=== PATIENT | male | born 1990 | race Caucasian/White ===

== ENCOUNTER 2024-12-03 21:50 | Emergency (ER) | payer OTHER, SELFPAY ==
[2024-12-03 22:15] VITALS: BP 129/72; PULSE 83; RESP 18; TEMP 36.8; O2SAT 97; BMI 23.6
--- NOTE | 2024-12-03 22:18 | DI.RAD.S_ITS ---
PROCEDURE: XR CHEST 2V INDICATIONS: cough, pt concern for pneumonia TECHNIQUE: 2 views of the chest were acquired. COMPARISON: None. FINDINGS: Surgical changes and devices: None. Lungs and pleura: Patchy alveolar opacity in the left mid to lower lung zone. Right lung is clear. No pleural effusion. Mediastinum: Mediastinal contours are normal. Heart size is normal. Bones and chest wall: No suspicious bony abnormalities. Soft tissues appear unremarkable. IMPRESSION: Acute alveolar opacity in the left lower lobe without pleural effusion. Dictated by: Aislinn Cullen M.D. on 12/03/2024 at 22:59 Approved by: Aislinn Cullen M.D. on 12/03/2024 at 23:00
[2024-12-03 23:11] LABS: Influenza A - CEPHEID Flu A NEGATIVE (NEGATIVE); Influenza B - CEPHEID Flu B NEGATIVE (NEGATIVE); Respiratory Syncytial Virus Negative (Negative)
[2024-12-03 23:13] LABS: COVID-19 CEPHEID 4-PLEX PCR Negative (Negative)
[2024-12-04 02:17] VITALS: BP 131/78; PULSE 86; O2SAT 96
--- NOTE | 2024-12-04 02:19 | ED.URI ---
HPI - URI/Sore Throat General Chief Complaint: Upper Respiratory Symptoms Stated Complaint: thinks has pneumonia Time Seen by Provider: 12/03/24 22:18 Source: patient Mode of arrival: Ambulatory History of Present Illness HPI Narrative: 34-year-old male with 2 weeks' duration cough, feeling feverish, denies chest pain or shortness of breath. Denies abdominal pain, nausea, vomiting, diarrhea. No household close contact members with similar symptoms. He has currently not taking any antibiotics. No chronic heart or lung problems. Related Data Previous Rx's Medication Instructions Recorded azithromycin 250 mg tablet 250 mg PO DAILY 4 days #4 tabs 12/04/24 Allergies Allergy/AdvReac Type Severity Reaction Status Date / Time No Known Drug Allergies Allergy Verified 12/03/24 22:14 Patient History Social History Smoking Status: Never smoker Smoking Status: Never smoker Exam Narrative Exam Narrative: GENERAL: Well-developed patient, in mild distress. HEAD: Atraumatic. Normocephalic. EYES: Pupils equal round and reactive. Extraocular motions intact. No scleral icterus. No injection or drainage. ENT: Nose without bleeding, purulent drainage. Throat without erythema, tonsillar hypertrophy or exudate. Airway patent. NECK: Trachea midline. Non tender CARDIOVASCULAR: Regular rate and rhythm without murmurs, gallops, or rubs. RESPIRATORY: Clear to auscultation. Breath sounds equal bilaterally. No wheezes, rales, or rhonchi. GASTROINTESTINAL: Abdomen soft, non-tender, nondistended. EXTREMITIES: No edema or joint tenderness. BACK: Nontender without deformity or crepitance. No flank tenderness. NEURO: AOx3. Motor functions grossly nonfocal SKIN: No rash or erythema of visible areas Initial Vital Signs Initial Vital Signs: Vital Signs Temperature 98.2 F 12/03/24 22:15 Pulse Rate 83 12/03/24 22:15 Respiratory Rate 18 12/03/24 22:15 Blood Pressure 129/72 12/03/24 22:15 Pulse Oximetry 97 12/03/24 22:15 Oxygen Delivery Method Room Air 12/03/24 22:15 Course Orders Ordered: ED Orders 12/03/24 22:18 XR chest 2V Stat 12/03/24 22:20 Covid-19 + FLU A/B + RSV - PCR Stat Discontinued Medications Azithromycin (Azithromycin 250 Mg Tablet) 500 mg PO NOW ONE Stop: 12/04/24 01:36 Last Admin: 12/04/24 02:38 Dose: 500 mg Documented By: HNG Vital Signs Vital signs: Vital Signs - 8 hr 12/03/24 22:15 12/04/24 02:17 12/04/24 02:17 Temperature 98.2 F Pulse Rate 83 86 Respiratory Rate 18 Blood Pressure 129/72 131/78 Pulse Oximetry 97 96 Oxygen Delivery Method Room Air 12/04/24 02:30 12/04/24 02:30 12/04/24 02:30 Temperature Pulse Rate 89 89 Respiratory Rate 18 Blood Pressure 127/77 Pulse Oximetry 96 96 Oxygen Delivery Method MDM - URI/Sore Throat Lab Data Attestation: I reviewed the patient's lab results. Lab results narrative: COVID and influenza and RSV swab negative Labs: Lab Results 12/03/24 Range/Units 22:20 SARS-CoV-2 (PCR) Negative (Negative) Influenza A (RT-PCR) Flu a negative (NEGATIVE) Influenza B (RT-PCR) Flu b negative (NEGATIVE) RSV (PCR) Negative (Negative) Imaging Data Chest x-ray: Radiologist's Impression: [place] [address] XRay Report Signed Patient: Tu Soliz MR#: [id number] : 1990 Acct:[id number] Age/Sex: 34 / M Date of Service: 12/03/24 Loc: ED Accession Number: [id number] Procedure: XR chest 2V Ordering Provider: Angel Small MD PROCEDURE: XR CHEST 2V INDICATIONS: cough, pt concern for pneumonia TECHNIQUE: 2 views of the chest were acquired. COMPARISON: None. FINDINGS: Surgical changes and devices: None. Lungs and pleura: Patchy alveolar opacity in the left mid to lower lung zone. Right lung is clear. No pleural effusion. Mediastinum: Mediastinal contours are normal. Heart size is normal. Bones and chest wall: No suspicious bony abnormalities. Soft tissues appear unremarkable. IMPRESSION: Acute alveolar opacity in the left lower lobe without pleural effusion. Dictated by: Aislinn Cullen M.D. on 12/03/2024 at 22:59 Approved by: Aislinn Cullen M.D. on 12/03/2024 at 23:00 [facility] Narrative Medical decision making narrative: Cough for the last 2 weeks, feverish today, swab negative for COVID/flu/RSV, chest x-ray suspicious for left lower lobe infiltrate. Oral azithromycin 1st dose now, prescription sent to his pharmacy. We discussed oral fluids, Tylenol and or Motrin as needed for pain and fever control. Discharged home with family. Return precautions discussed Discharge Plan Departure Patient Disposition: Home Clinical Impression: Pneumonia Prescriptions: New azithromycin 250 mg tablet 250 mg PO DAILY 4 Days Qty: 4 0RF Rx Instructions: start on day 2 of therapy Referrals: [facility] [Primary Care Provider] - Stand Alone Forms: Patient Portal/API/Survey, Work Release Note
[2024-12-04 02:30] VITALS: BP 127/77; PULSE 89; RESP 18; O2SAT 96
[2024-12-04] MEDS: AZITHROMYCIN 250 MG TABLET 500 MG PO (02:38)
== END 2024-12-04 02:51 | disposition home or self-care (01) ==
PROVIDERS: Emergency Provider Emergency Medicine
DX: J18.9 Pneumonia, unspecified organism (principal)
CPT/HCPCS: 0241U; 71046; 99283

== ENCOUNTER → 2025-09-05 08:44 | Outpatient (CLI) | payer OTHER, SELFPAY ==
--- NOTE | 2025-09-05 08:45 | DI.US.S_ITS ---
PROCEDURE: US HERNIA INDICATIONS: Left inguinal hernia TECHNIQUE: Real-time focused scanning was performed of the inguinal region, with image documentation. COMPARISON: None. FINDINGS: There is a fat containing left inguinal hernia with sac measuring approximately 3.4 x 1.6 x 2.1 cm. Fascial defect measures approximately 1.0 cm. IMPRESSION: Fat containing left inguinal hernia corresponding to area of clinical concern with fascial defect measuring approximately 1.0 cm. Approved by: Cinthia Pizarro M.D.,Ph.D. on 09/05/2025 at 17:19
== END ==
LOC: US 08:45
PROVIDERS: Visit Provider Surgery
DX: K40.90 Unilateral inguinal hernia, without obstruction or gangrene, not specified as recurrent (principal)
CPT/HCPCS: 76705

== ENCOUNTER 2025-10-04 11:28 | Day surgery (SDC) | payer OTHER, SELFPAY ==
[2025-09-19 14:59] VITALS: BMI 23.2
[2025-10-04] VITALS (13 sets, daily range): BP systolic 95–138; BP diastolic 51–79; PULSE 80–89; RESP 12–18; TEMP 36.7–36.9; O2SAT 92–100
[2025-10-04] MEDS: LACTATED RINGERS 1,000 ML 42 ML IV (12:54)
--- NOTE | 2025-10-04 18:34 | P.HP_ITS ---
History of Present Illness
--- NOTE | 2025-10-04 18:34 | PM.HP.IH.1 ---
History of Present Illness History of Present Illness Date Patient Seen: 10/04/25 Time Patient Seen: 18:34 Chief complaint: Left Lap Inguinal Hernia Repair Robot Assist Narrative: Tu is a 35-year-old man with a left inguinal hernia confirmed with ultrasound. See the office note for details. PFSH Social History Smoking Status: Never smoker Meds Home Medications and Allergies Home Medications ?Medication ?Instructions ?Recorded ?Confirmed ?Type hydrocodone 5 mg-acetaminophen 325 1 tab PO Q8H PRN pain #10 tabs 10/04/25 Rx mg tablet Allergies Allergy/AdvReac Type Severity Reaction Status Date / Time No Known Drug Allergies Allergy Verified 10/04/25 12:33 Exam Vital Signs (past 8 hours): - 10/04/25 12:39 Temperature 98.4 F Pulse Rate 85 Respiratory Rate 16 Blood Pressure 138/79 Pulse Oximetry 100 Oxygen Delivery Method Room Air Oxygen Delivery Method Room Air Const General: healthy appearing Assessment & Plan Assessment and plan (1) Left inguinal hernia: Status: Acute Plan Robotic left, possible right inguinal hernia repair with mesh Time-Based Coding :: [TOTAL MINUTES] spent with patient and on the chart (including review of chart, obtaining history, exam, reviewing outside data, placing orders, documenting exam and treatment plan, and counseling patient) on [DATE]. 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
--- NOTE | 2025-10-04 19:21 | SUR.OPER ---
Supine on padded OR bed with pink pad, head on pillow, arms padded and tucked at sides, safety strap across chest, legs uncrossed, safety belt at thigh, tape over blanket over lower legs .
[2025-10-04] MEDS: ACETAMINOPHEN IV 1,000 MG/100 ML VIAL 400 MG IV (20:12)
--- NOTE | 2025-10-04 20:26 | P.OP_ITS ---
Operative Date/Time/Diagnoses
--- NOTE | 2025-10-04 20:26 | PM.OP.1 ---
Operative Date/Time/Diagnoses Date of procedure: 10/04/25 Time of procedure: 20:27 Pre-op diagnosis: Left inguinal hernia Post-op diagnosis: same Procedure & Clinicians Procedure: Robotic left inguinal hernia repair with mesh Same procedure(s) as scheduled: Yes Surgeon: Scott Cha Assisted?: No Anesthesia Type: General Operative Notes Findings: Large direct defect Applied: none Estimated Blood Loss (mL): 8 Procedure in detail: The patient was given preoperative antibiotics. The patient was brought to the operating room, placed on the table in the supine position with the arms tucked and general anesthesia was induced. The abdomen was prepped and draped in the usual fashion. A time-out was performed. A 1 cm transverse incision was created superior to the umbilicus and dissection was carried down to the fascia. The fascia was grasped with a Manjit clamp to elevate the abdominal wall. The fascia was scored transversely with cautery. A Peon clamp was used to garibay the peritoneum. The 12 mm robotic port was placed and the abdomen was insufflated to 15 mmHg. The camera was inserted, there was no evidence of any injury from the entry. There was left direct inguinal hernia. 8 mm ports were placed under direct vision in the mid left and mid right abdomen. The patient was positioned in Trendelenburg. The robot was docked. We created left peritoneal flap. The peritoneum was dissected off the left cord structures and the Brandon's ligament was exposed. A large left Bard mesh was brought in and placed over the defect with the medial edge overlapping the pubic symphysis. We then closed the peritoneal flap with a running 3-0 barbed suture. We took one last look around the abdomen and saw no other abnormalities. The suture was removed and accounted for. The robot was undocked. The 8 mm ports were removed under direct vision. The abdomen was desufflated. The 12 mm port was removed. Additional local was injected into the fascia and the fascial incision was closed with 2 interrupted 0 Vicryl sutures. The skin incisions were closed with 4 Monocryl, Steri-Strips and Band-Aids. Complications: none Post-operative Condition: stable
== END 2025-10-04 22:05 | disposition home or self-care (01) ==
PROVIDERS: Referring Provider Surgery; Visit Provider Surgery
PROC: 0YQ64ZZ Repair Left Inguinal Region, Percutaneous Endoscopic Approach (ICD-10-PCS; CPT 49650; principal; 2025-10-04 13:30)
DX: K40.90 Unilateral inguinal hernia, without obstruction or gangrene, not specified as recurrent (principal)
CPT/HCPCS: 49650; S2900; C1781; J0131; J0689; J1100; J1885; J2250; J2405; J2704; J3010; J7120